=== PATIENT | male | born 1985 | race Caucasian/White ===

== ENCOUNTER 2017-02-01 06:24 | Day surgery (SDC) | payer BC ==
--- NOTE | ~2017-02-01 | OP ---
Record Of Operation [facility] [address] [place]. [address] NAME: LYNN SENIOR : 89 STATUS : REG [facility]#: [id number] AGE: 32 ADM/REG DATE : 02/01/17 MR#: [id number] REPORT SERV DATE: 02/01/17 DICTATED BY: MONCHO PENALOZA DATE: 02/01/17 REPORT STATUS : Draft TRANSCRIBED BY: MODL DATE: 02/01/17 DATE OF PROCEDURE: 02/01/2017 PREPROCEDURE DIAGNOSIS: Persistent 5 mm distal right ureteral calculus. POSTPROCEDURE DIAGNOSIS: Persistent 5 mm distal right ureteral calculus. PROCEDURE: Right ESWL. SURGEON: Moncho Penaloza M.D. DEBT COLLECTOR: Jay Chapmna. ANESTHESIA: MAC. HISTORY: Mr. Perry is a 32-year-old white gentleman with history of a large proximal ureteral stone on the right side. He previously underwent one attempt at ESWL with incomplete stone fragmentation, but distal migration. We discussed treatment options and he requested repeat ESWL. Risks specific to this procedure include, but not limited to bleeding, infection, incomplete stone fragmentation, Steinstrasse, hematoma, injury to neighboring organs, need for further urologic procedures, anesthesia complications, and so forth. I answered all of his questions I believe to his satisfaction. Subsequently, he requested the procedure and provided informed written consent. PROCEDURE IN DETAIL: On 02/01/2017, the patient was brought to the lithotripsy suite. He was placed supine on the Dornier Compact Delta II Lithotriptor. Biplanar fluoroscopy was used to localize the right ureteral calculus. A time-out was called. The proper patient and procedure were confirmed. Levaquin was administered as a perioperative antibiotic. At this time, the Anesthesia team established monitored anesthesia care. Subsequently, we delivered a total of 3000 shocks at a maximum power of 6 in rate of 120 shocks per minute to the stone. Fluoroscopy time was 2 minutes 27 seconds. The patient tolerated the procedure well without immediate complications, and was transferred to the recovery area in stable condition. RAC/MODL Moncho Penaloza M.D. / [id number] CC: Moncho Penaloza M.D.
[~2017-02-01 06:24] MED LIST: DIL2TAB PO; FLOMAX4 PO
[2017-02-12] MEDS ORDERED: PERCOCET 7.5/321 TAB PO (13:41)
[2017-02-12] MEDS ORDERED: DURICEF PO (13:43)
== END 2017-02-01 10:04 | disposition home or self-care (01) ==
LOC: SDC 06:24
PROVIDERS: Urology
PROC: 0TF6XZZ Fragmentation in Right Ureter, External Approach (ICD-10-PCS; principal; 2017-02-01 08:00)
DX: N20.1 Calculus of ureter (principal); Z79.899 Other long term (current) drug therapy; Z87.442 Personal history of urinary calculi; Z98.890 Other specified postprocedural states
CPT/HCPCS: 50590; 74000; A9270-GY; J2250; J2405; J3010